=== PATIENT | male | born 1965 | race African-American/Black ===

== ENCOUNTER 2020-01-15 22:43 | Emergency (ER) | payer OTHER ==
[~2020-01-15] VITALS: Ht 175.3 cm; Wt 99.3 kg
[2020-01-16 01:45] VITALS: BP 138/87
== END 2020-01-16 02:44 | disposition left against medical advice (07) ==
LOC: ER 22:48
DX: M79.641 Pain in right hand (principal); Z53.21 Procedure and treatment not carried out due to patient leaving prior to being seen by health care provider